=== PATIENT | female | born 1940 | race Caucasian/White ===

== ENCOUNTER 2016-09-18 15:10 | Outpatient (CLI) | payer MEDICARE, OTHER | END 2016-09-18 15:11 | LOC: POD 15:10 | PROVIDERS: ATTEND Podiatrist | DX: B35.1 Tinea unguium (principal); M79.674 Pain in right toe(s); M79.675 Pain in left toe(s) | CPT/HCPCS: 11721; G0463 ==

== ENCOUNTER 2016-12-09 12:45 | Outpatient (CLI) | payer MEDICARE, OTHER ==
[2016-12-09 13:34] LABS: eGFR (African) 43; eGFR (Non-African) 36
== END 2016-12-09 12:46 ==
LOC: LAB 12:45
PROVIDERS: ATTEND Nurse Practitioner Family
DX: N28.9 Disorder of kidney and ureter, unspecified (principal)
CPT/HCPCS: 36415; 80048

== ENCOUNTER 2016-12-18 13:42 | Outpatient (CLI) | payer MEDICARE, OTHER | END 2016-12-18 13:43 | LOC: POD 13:42 | PROVIDERS: ATTEND Podiatrist | DX: B35.1 Tinea unguium (principal); M79.674 Pain in right toe(s); M79.675 Pain in left toe(s) ==

== ENCOUNTER 2016-12-24 11:49 | Emergency (ER) | payer MEDICARE, OTHER ==
--- NOTE | 2016-12-24 12:46 | ED Physician Documentation ---
Fall - HISTORIAN Historian: patient - HPI Stated Complaint: Fall with Head Injury Chief Complaint: Fall Onset: just prior to arrival Where: home Context: tripped Associated Symptoms:: no loss of consciousness Location of Pain/Injury: head Injury to Right Extremity: none Injury to Left Extremity: none Further Comments: yes (76 year old female patient presents after falling on the porch stair and hitting her forehead against the wooden bench. Patient denies LOC. Patient cannot recall medication list, states she has stopped taking some of her medications. States she is taking 2 diabetes medications, but did not take her BP medication this morning.) - ROS CONST: no problems NEURO: denies: anxiety, depression MS/SKIN/LYMPH: denies: weakness, numbness, neck pain, back pain, ankle swelling , leg swelling, rash, other EYES/ENT: none CVS/RESP: none GI/: denies: nausea, vomiting - PAST HX Past History: diabetes Type 2, other (HTN) Allergies/Adverse Reactions: Allergies Allergy/AdvReac Type Severity Reaction Status Date / Time No Known Allergies Allergy Unverified 12/24/16 11:59 Home Medications: Ambulatory Orders Medication Instructions Recorded Glimepiride [Amaryl] 4 mg PO DAILY 12/24/16 Levothyroxine Sodium [Synthroid] 25 mcg PO 0700 12/24/16 Losartan/Hydrochlorothiazide 1 each PO DAILY 12/24/16 [Hyzaar 100-25 Tablet] Metformin HCl [Glucophage] 500 mg PO TID 12/24/16 amLODIPine BESYLATE [Norvasc] 5 mg PO DAILY 12/24/16 - SOCIAL HX Smoking History: cigarettes - FAMILY HX Family History: denies: none - VITAL SIGNS Vital Signs: Vital Signs Temp Pulse Resp BP Pulse Ox 97.1 F L 75 18 220/88 98 12/24/16 11:50 12/24/16 11:50 12/24/16 11:50 12/24/16 11:50 12/24/16 11:50 - REVIEWED ASSESSMENTS Nursing Assessment Reviewed: Yes Vitals Reviewed: Yes Progress - Progress Progress: Clonidine given for Hypertension; See BP records Repeated clonidine. BP 139/67 - instructed patient to follow up with Charly BOJORQUEZ tomorrow for BP check, medication clarification and wound recheck. Patient verbalized understanding. ED Results Lab/Radiology - Radiology Radiology Impressions: Computed tomography of the head without contrast History: Left frontal head injury after fall. Headache. Findings: Transverse brain sections are obtained without contrast revealing a left frontal scalp hematoma without intracranial hemorrhage or skull fracture. Mild to moderate global brain atrophy is observed. Chronic small vessel ischemic gliosis is present in periventricular white matter. Visualized sinuses and mastoid air cells are clear. Impression: 1. Left frontal scalp hematoma. 2. Age appropriate senescent brain changes. Electronically signed on Dec 24, 2016 12:28:30 PM CDT by: Mervin Wagner - Orders Orders: ED Orders Category Date Time Status CT BRAIN W/O CONTRAST Stat Exams 12/24/16 Ordered Fall Physical Exam - Physical Exam General Appearance: mild distress Head: non-tender, no swelling, no obvious injury, trauma (hematoma noted on left forehead area - 4 cm x 6 cm) Eye: FANNY, EOMI, lids & conjunct. nml Resp/CVS: chest non-tender, no ecchymosis, breath sounds nml, no resp. distress , heart sounds nml Abdomen: soft, no organomegaly, normal bowel sounds, no abdominal bruit, no distension Neuro: oriented x3, CN's nml as tested, sensation nml, motor nml, mood/affect nml, network security analyst nml, reflexes nml, network security analyst symmetrical Skin: color nml, no rash, nml palp., dry Back: normal inspection, no CVA tenderness Extremities: atraumatic, pelvis stable, hips non-tender, no pedal edema, nml ROM , nml color/temp - Adeola Coma Score Eyes Open: Spontaneous Speech: Oriented Motor: Obeys Commands Discharge Clincal Impression: Fall Qualifiers: Encounter type: initial encounter Qualified Code(s): W19.XXXA - Unspecified fall, initial encounter Hypertension Qualifiers: Hypertension type: essential hypertension Qualified Code(s): I10 - Essential ( primary) hypertension Traumatic hematoma of forearm Qualifiers: Encounter type: initial encounter Laterality: left Qualified Code(s): S50.12XA - Contusion of left forearm, initial encounter Referrals: Esperanza Reardon PRN [Primary Care Provider] - 2 Days Additional Instructions: Rest Ice to forehead - 20 minutes every 2 hours You will likely have bruising and swelling around your left eye in the morning. Continue all of your medications as ordered. Return to ER if if you have any of the follow symptoms: 1.More sleepy or confused 2.Severe or worsening headache 3.Seizure 4.Vomiting, fever >101.5, or stiff neck 5.Loss of control or urine or bowel 6.Trouble walking 7.Use Tylenol every 4 hours as needed for Headache 8.Diet: Start with Clear liquids and advance diet as tolerated. 9.Follow up with your doctor in 2-3 days. See Pina BOJORQUEZ on Wednesday for follow up and medication check. Home Medications: Ambulatory Orders Glimepiride [Amaryl] 4 mg PO DAILY 12/24/16 Levothyroxine Sodium [Synthroid] 25 mcg PO 0700 12/24/16 Losartan/Hydrochlorothiazide [Hyzaar 100-25 Tablet] 1 each PO DAILY 12/24/16 Metformin HCl [Glucophage] 500 mg PO TID 12/24/16 amLODIPine BESYLATE [Norvasc] 5 mg PO DAILY 12/24/16 Condition: Stable Disposition: HOME, SELF-CARE Decision to Admit: NO Decision Time: 14:41
[2016-12-24] MEDS: CloNIDine HCL 0.1 MG TABLET PO ONE ×2 (13:00→13:50)
[2016-12-24 14:48] VITALS: BP 139/67
--- NOTE | 2016-12-24 20:52 | Diagnostic Imaging Report ---
KRISTIAN GRIMALDO (ANGELA) - ER~ [facility] [address] Count Includes [facility] [address] [address] ~ ~ ~ ~ Report Submission Date: Dec 24, 2016 12:28:30 PM CDT Patient ~ Study Name: AJIT DIAS ~ Date: Dec 24, 2016 12:10:39 PM CDT ~ Modality Type: CT\SR Gender: F ~ Description: CT BRAIN W/O CONTRAST : 38 ~ Institution: [facility] Physician: KRISTIAN GRIMALDO) - REBECCA ~ ~ ~ ~ Computed tomography of the head without contrast History: Left frontal head injury after fall. Headache. Findings: Transverse brain sections are obtained without contrast revealing a left frontal scalp hematoma without intracranial hemorrhage or skull fracture. Mild to moderate global brain atrophy is observed. Chronic small vessel ischemic gliosis is present in periventricular white matter. Visualized sinuses and mastoid air cells are clear. Impression: 1. Left frontal scalp hematoma. 2. Age appropriate senescent brain changes. ~ Electronically signed on Dec 24, 2016 12:28:30 PM CDT by: Mervin VILLEGAS
== END 2016-12-24 14:46 | disposition home or self-care (01) ==
LOC: ED 11:49
DX: S50.12XA Contusion of left forearm, initial encounter (principal); W19.XXXA Unspecified fall, initial encounter; Y93.9 Activity, unspecified; Y99.9 Unspecified external cause status; I10 Essential (primary) hypertension
CPT/HCPCS: 70450; 99283

== ENCOUNTER 2017-03-19 13:35 | Outpatient (CLI) | payer MEDICARE, OTHER | END 2017-03-19 13:36 | LOC: POD 13:35 | PROVIDERS: ATTEND Podiatrist | DX: B35.1 Tinea unguium (principal); M79.674 Pain in right toe(s); M79.675 Pain in left toe(s) | CPT/HCPCS: 11721; G0463 ==

== ENCOUNTER 2017-07-02 12:35 | Outpatient (CLI) | payer MEDICARE, OTHER | END 2017-07-02 12:36 | LOC: POD 12:35 | PROVIDERS: ATTEND Podiatrist | DX: B35.1 Tinea unguium (principal); M79.674 Pain in right toe(s); M79.675 Pain in left toe(s) | CPT/HCPCS: 11721; G0463 ==

== ENCOUNTER 2017-07-13 15:10 | Outpatient (CLI) | payer MEDICARE, OTHER | END 2017-07-13 15:11 | LOC: NEPHRO 15:10 | PROVIDERS: ATTEND Internal Medicine Nephrology | DX: R80.9 Proteinuria, unspecified (principal); I10 Essential (primary) hypertension; E11.9 Type 2 diabetes mellitus without complications | CPT/HCPCS: G0463 ==

== ENCOUNTER 2017-07-14 09:08 | Outpatient (CLI) | payer MEDICARE, OTHER ==
--- NOTE | 2017-07-14 12:36 | Diagnostic Imaging Report ---
IRMA THOMAS [facility] [address] [facility] [address] [address] Report Submission Date: Jul 14, 2017 11:07:24 AM GALLERY ASSISTANT Patient Study Name: AJIT DIAS Date: Jul 14, 2017 10:36:07 AM GALLERY ASSISTANT Modality Type: US Gender: F Description: US EXAM ABD BACK WALL : 38 Institution: [facility] Physician: IRMA THOMAS Examination: Ultrasound kidneys History: Proteinuria Comparison exams: None provided Findings: Right kidney measures 9.4 cm in length. Left kidney measures 8.4 cm in length. No evidence for cortical mass bilaterally. No hydronephrosis. Bladder margin within normal limits. Bilateral ureteral jets. Wall the Pre void bladder volume of 209 ml, no post void residual. Impression: No renal mass or obstruction. No post void residual. Electronically signed on Jul 14, 2017 11:07:24 AM GALLERY ASSISTANT by: Juan C VILLEGAS
== END 2017-07-14 09:10 ==
LOC: RAD 09:08
PROVIDERS: ATTEND Internal Medicine Nephrology
DX: R80.9 Proteinuria, unspecified (principal); I10 Essential (primary) hypertension; E11.9 Type 2 diabetes mellitus without complications
CPT/HCPCS: 76770

== ENCOUNTER 2017-07-27 12:15 | Outpatient (CLI) | payer MEDICARE, OTHER | END 2017-07-27 12:16 | LOC: CARD 12:15 | PROVIDERS: ATTEND Internal Medicine Cardiovascular Disease | DX: I15.9 Secondary hypertension, unspecified (principal) ==

== ENCOUNTER 2017-08-27 15:17 | Outpatient (CLI) | payer MEDICARE, OTHER ==
[2017-08-27 15:47] LABS: BASOPHILS % 0.8 (0.0-1.5); MEAN CORPUSCULAR HEMOGLOBIN 30.5 pg (28.0-34.0); MONOCYTES % 2.9 % (0.0-11.0); NEUTROPHILS # 4.6 # k/uL (1.4-7.7)
[2017-08-27 16:17] LABS: eGFR (African) > 60; eGFR (Non-African) 42
[2017-08-28 01:40] LABS: PROTEIN mg/dL 54 mg/dL
== END 2017-08-27 15:18 ==
LOC: LAB 15:17
PROVIDERS: ATTEND Internal Medicine Nephrology
DX: R80.9 Proteinuria, unspecified (principal); I10 Essential (primary) hypertension; E11.9 Type 2 diabetes mellitus without complications
CPT/HCPCS: 36415; 80053; 82570; 83970; 84100; 84156; 85025

== ENCOUNTER 2017-09-07 15:14 | Outpatient (CLI) | payer MEDICARE, OTHER | END 2017-09-07 15:15 | LOC: NEPHRO 15:14 | PROVIDERS: ATTEND Internal Medicine Nephrology | DX: E11.9 Type 2 diabetes mellitus without complications (principal); I10 Essential (primary) hypertension; N17.9 Acute kidney failure, unspecified | CPT/HCPCS: G0463 ==

== ENCOUNTER 2017-10-01 12:40 | Outpatient (CLI) | payer MEDICARE, OTHER | END 2017-10-01 12:50 | LOC: POD 12:40 | PROVIDERS: ATTEND Podiatrist | DX: B35.1 Tinea unguium (principal); M79.674 Pain in right toe(s); M79.675 Pain in left toe(s) | CPT/HCPCS: 11721; G0463 ==

== ENCOUNTER 2017-12-31 13:17 | Outpatient (CLI) | payer MEDICARE, OTHER | END 2017-12-31 13:20 | LOC: POD 13:17 | PROVIDERS: ATTEND Podiatrist | DX: B35.1 Tinea unguium (principal); M79.674 Pain in right toe(s); M79.675 Pain in left toe(s) | CPT/HCPCS: 11721; G0463 ==

== ENCOUNTER 2018-03-15 13:49 | Outpatient (CLI) | payer MEDICARE, OTHER | END 2018-03-15 13:50 | LOC: NEPHRO 13:49 | PROVIDERS: ATTEND Internal Medicine Nephrology | DX: R80.9 Proteinuria, unspecified (principal); E11.9 Type 2 diabetes mellitus without complications; I10 Essential (primary) hypertension | CPT/HCPCS: G0463 ==

== ENCOUNTER 2018-08-03 11:50 | Outpatient (CLI) | payer MEDICARE, OTHER ==
--- NOTE | 2018-08-04 18:56 | Diagnostic Imaging Report ---
LOKI RECINOS (ANGELA) - OP [facility] [address] [address] Report Submission Date: Aug 04, 2018 4:24:56 PM WARP SCOURING VAT TENDER Patient Study Name: AJIT DIAS Date: Aug 03, 2018 12:00:00 AM WARP SCOURING VAT TENDER Modality Type: DEXA\OT Gender: F Description: DEXA : 38 Institution: [facility] Physician: LOKI RECINOS) - OP Examination: Bone density History: Assess bone mineralization Comparison exams: None available Technique: DEXA protocol Findings: Average bone mineral density from L1 through L4: 1.423 grams cm2. T score: 2.0 Average bone mineral density of the left femoral neck: 0.993grams cm2. T score: -0.1 Average bone mineral density of the right femoral neck: 1.010grams cm2. T score: -0.0 Impression: Normal lumbar spine and hip mineralization for age Electronically signed on Aug 04, 2018 4:24:56 PM WARP SCOURING VAT TENDER by: Juan C VILLEGAS
== END 2018-08-03 11:52 ==
LOC: RAD 11:50
PROVIDERS: ATTEND Nurse Practitioner Family
DX: Z78.0 Asymptomatic menopausal state (principal); Z13.820 Encounter for screening for osteoporosis
CPT/HCPCS: 77080

== ENCOUNTER 2019-04-11 14:52 | Outpatient (CLI) | payer MEDICARE, OTHER | END 2019-04-11 15:10 | LOC: NEPHRO 14:52 | PROVIDERS: ATTEND Internal Medicine Nephrology | DX: I10 Essential (primary) hypertension (principal); E11.9 Type 2 diabetes mellitus without complications | CPT/HCPCS: 99213; G0463 ==

== ENCOUNTER 2019-04-17 20:38 | Emergency (ER) | payer MEDICARE, OTHER ==
--- NOTE | 2019-04-17 22:29 | ED Physician Documentation ---
General Adult - HISTORIAN Historian: patient - HPI Stated Complaint: Possible Constipation Chief Complaint: Abdominal Pain Onset: days ago Timing: still present Severity: moderate Further Comments: yes (Pt is a 78 yo female with c/o "fullness of rectum" at [facility]. Daughter states that pt has mild dementia. Pt sent from [facility] to [facility] for bowel blockage. Pt has bm this am, but it was small and very solid, family reports.) - ROS CONST: no problems, other (Pt is a poor historian) EYES/ENT: none CVS/RESP: none GI/: other (difficulty moving bowels, "rectal fullness") MS/SKIN/LYMPH: none - PAST HX Past History: other (HTN, DM (oral meds), depression, thyroid d/o) Allergies/Adverse Reactions: Allergies Allergy/AdvReac Type Severity Reaction Status Date / Time No Known Allergies Allergy Verified 04/17/19 21:16 Home Medications: Ambulatory Orders Medication Instructions Recorded Glimepiride [Amaryl] 4 mg PO DAILY 12/24/16 Levothyroxine Sodium [Synthroid] 25 mcg PO 0700 12/24/16 Losartan/Hydrochlorothiazide 1 each PO DAILY 12/24/16 [Hyzaar 100-25 Tablet] metFORMIN HCl [Glucophage] 500 mg PO TID 12/24/16 Citalopram Hydrobromide 10 mg PO DAILY 04/17/19 [Citalopram HBr] - SOCIAL HX Smoking History: non-smoker - FAMILY HX Family History: No - VITAL SIGNS Vital Signs: Vital Signs Temp Pulse Resp BP Pulse Ox 99 F 71 14 155/87 100 04/17/19 20:38 04/17/19 20:38 04/17/19 20:38 04/17/19 20:38 04/17/19 20:38 - REVIEWED ASSESSMENTS Nursing Assessment Reviewed: Yes Vitals Reviewed: Yes Progress - Progress Progress: One view abdomen Clinical history: Abdominal pain. Findings: Examination of the abdomen in single AP view demonstrates gas and stool in the colon. There is gas in some nondistended small-bowel loops. There is no evidence of obstruction. Degenerative changes are seen in the lumbar vertebrae. Impression: 1. Lumbar spondylosis. 2. Small bowel gas but no significant small bowel distention. NS 1 L IVF Pt c/o "fullness of rectum" 1 bottle Magnesium Citrate --> home. Magnesium Citrate. Drink 1/2 bottle. If no bowel movement after 6 hours, repeat drinking 1/2 bottle. ED Results Lab/Radiology - Orders Orders: ED Orders Category Date Time Status Place IV Lock 1T Care 04/17/19 21:15 Active ABDOMEN 1VIEW [RAD] Stat Exams 04/17/19 Taken CBC/PLATELET/DIFF Routine Lab 04/17/19 21:47 Received CMP Routine Lab 04/17/19 21:47 Received NT BNP Stat Lab 04/17/19 21:47 Received 0.9 % Sodium Chloride [Normal Saline] 1,000 ml Med 04/17/19 21:15 Discontinued IV Q1H General Adult Physical Exam - PHYSICAL EXAM GENERAL APPEARANCE: mild distress EENT: pharynx normal NECK: normal inspection, supple RESPIRATORY: no resp distress, chest non-tender, breath sounds normal CVS: reg rate & rhythm, heart sounds normal ABDOMEN: soft, no organomegaly, decreased BS BACK: normal inspection, no CVA tenderness SKIN: warm/dry, normal color EXTREMITIES: non-tender, normal range of motion, no evidence of injury NEURO: motor nml, sensation nml, other (baseline ms) Discharge Clincal Impression: constipation Referrals: Esperanza Reardon PRN [Primary Care Provider] - Condition: Stable Disposition: 01 HOME, SELF-CARE Decision to Admit: NO Decision Time: 23:53
[2019-04-17] MEDS: 0.9 % SODIUM CHLORIDE 1,000 ML IV ONE (22:49)
[2019-04-17] MEDS: MAGNESIUM CITRATE 296 ML BOTTLE PO ONE (23:55)
[2019-04-18 00:23] VITALS: BP 148/69
[2019-04-18 06:33] LABS: BASOPHILS % 0.5 % (0.0-1.5); NEUTROPHILS # 6.4 # k/uL (1.4-7.7)
--- NOTE | 2019-04-18 06:40 | Diagnostic Imaging Report ---
COBY SANTANA [facility] [address] [facility] [address] [address] Report Submission Date: Apr 17, 2019 10:23:40 PM CDT Patient Study Name: AJIT DIAS Date: Apr 17, 2019 9:56:59 PM CDT Modality Type: DX Gender: F Description: ABDOMEN 1VIEW : 38 Institution: [facility] Physician: COBY SANTANA One view abdomen Clinical history: Abdominal pain. Findings: Examination of the abdomen in single AP view demonstrates gas and stool in the colon. There is gas in some nondistended small-bowel loops. There is no evidence of obstruction. Degenerative changes are seen in the lumbar vertebrae. Impression: 1. Lumbar spondylosis. 2. Small bowel gas but no significant small bowel distention. Electronically signed on Apr 17, 2019 10:23:40 PM CDT by: Juan VILLEGAS
== END 2019-04-18 00:07 | disposition home or self-care (01) ==
LOC: ED 20:38
DX: K59.00 Constipation, unspecified (principal)
CPT/HCPCS: 74018; 80053; 83880; 85025; 96360; 99284; J7030; S1016

== ENCOUNTER 2019-05-04 13:00 | Emergency (ER) | payer MEDICARE, OTHER | END 2019-05-04 13:50 | disposition home or self-care (01) | LOC: ED 13:00 | DX: Z04.3 Encounter for examination and observation following other accident (principal); W19.XXXA Unspecified fall, initial encounter | CPT/HCPCS: 99281; 99282 ==

== ENCOUNTER 2019-07-03 11:06 | Outpatient (CLI) | payer MEDICARE, OTHER ==
[2019-07-03 11:37] LABS: BASOPHILS % 0.5 % (0.0-1.5); NEUTROPHILS # 7.7 # k/uL (1.4-7.7)
[2019-07-03 11:53] LABS: eGFR (Non-African) 29
== END 2019-07-03 11:11 ==
LOC: LAB 11:06
PROVIDERS: ATTEND Nurse Practitioner Family
DX: D72.829 Elevated white blood cell count, unspecified (principal); E83.52 Hypercalcemia
CPT/HCPCS: 36415; 80053; 82306; 82330; 85025